=== PATIENT | male | born 1985 | race Caucasian/White ===

== ENCOUNTER 2019-08-02 06:06 | Emergency (ER) | payer OTHER ==
--- NOTE | 2019-08-02 06:32 | EDM.PDOC ---
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 instructor states they were all doing PT sit-ups and rolling sideways then another member state pt was having seizures. pt appear to stiffen up eyes seem rolled back and arms and legs shook abit. then woke up and tried to stand him up but he was unsteady. pt denies associated CP/SOB/ANDERSON/dizziness. 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/IO - Related Data Allergies Allergy/AdvReac Type Severity Reaction Status Date / Time No Known Allergies Allergy Verified 08/02/19 06:16 Home Meds: Home Meds Diclofenac Sodium [Voltaren] 50 mg PO BID 08/02/19 [History] Past Medical History Musculoskeletal History: Reports: Gout Social & Family History - Family History Endocrine/Metabolic: Reports: Diabetes, type II - Tobacco Use Smoking Status *Q: Former Smoker Used Tobacco, but Quit: No - Caffeine Use Caffeine Use: Reports: Coffee - Recreational Drug Use Recreational Drug Use: No ED ROS GENERAL - Review of Systems Review Of Systems: Comprehensive ROS is negative, except as noted in HPI. ED EXAM, NEURO - Physical Exam Exam: See Below Exam Limited By: No Limitations General Appearance: Alert, WD/WN, Mild Distress, Other (upset) Eye Exam: Bilateral Eye: PERRL (pupils ER @ 4mm) Ears: Hearing Grossly Normal Throat/Mouth: Normal Voice, No Airway Compromise, Other (no tongue trauma) Head Exam: Atraumatic Neck: Non-Tender, Full Range of Motion Respiratory/Chest: No Respiratory Distress Cardiovascular: Regular Rate, Rhythm GI/Abdominal: Soft, Non-Tender Neurological: Alert, No Motor/Sensory Deficits, Oriented x 3, Other (upset) Psychiatric: Flat Affect Skin Exam: Warm, Dry, Normal Color Course - Vital Signs Last Recorded V/S: Last Vital Signs Temp 98.0 F 08/02/19 06:16 Pulse 85 08/02/19 06:16 Resp 18 08/02/19 06:16 BP 109/71 08/02/19 06:16 Pulse Ox 96 08/02/19 06:16 Orthostatic Blood Pressure [ 139/78 Standing] Orthostatic Blood Pressure [ 128/78 Sitting] Orthostatic Blood Pressure [ 118/74 Supine] - Orders/Labs/Meds Orders: Active Orders 24 hr Category Date Time Status EKG 12 Lead [EKG Documentation Completion] [RC] STAT Care 08/02/19 06:19 Active EKG 12 Lead [EKG Documentation Completion] [RC] STAT Care 08/02/19 07:26 Active DRUG SCREEN URINE BIORAD [URCHEM] Stat Lab 08/02/19 06:25 Ordered UA RFX FRANKIE AND CULT IF INDIC [URIN] Stat Lab 08/02/19 06:25 Ordered Labs: Laboratory Tests 08/02/19 08/02/19 08/02/19 Range/Units 06:25 06:25 06:25 WBC 4.4 L (5.0-10.0) 10^3/uL RBC 4.39 L (4.6-6.2) 10^6/uL Hgb 13.5 L (14.0-18.0) g/dL Hct 38.9 L (40.0-54.0) % MCV 88.6 (80-100) fL MCH 30.8 (27.0-34.0) pg MCHC 34.7 (33.0-35.0) g/dL Plt Count 179 (150-450) 10^3/uL Neut % (Auto) 53.0 (42.2-75.2) % Lymph % (Auto) 28.5 (20.5-50.1) % [place] % (Auto) 14.4 H (2-8) % Eos % (Auto) 3.0 (1.0-3.0) % Baso % (Auto) 1.1 H (0.0-1.0) % Sodium 138 (135-145) mmol/L Potassium 4.1 (3.6-5.0) mmol/L Chloride 103 (101-111) mmol/L Carbon Dioxide 24.0 (21.0-31.0) mmol/L Anion Gap 15.1 BUN 17 (7-18) mg/dL Creatinine 1.2 (0.6-1.3) mg/dL Est Cr Clr Drug Dosing 98.89 mL/min Estimated GFR (MDRD) > 60 BUN/Creatinine Ratio 14.16 Glucose 93 (74-105) mg/dL Calcium 9.1 (8.4-10.2) mg/dl Magnesium 2.0 (1.8-2.5) mg/dL Total Bilirubin 0.8 (0.2-1.0) mg/dL AST 98 H (10-42) IU/L ALT 202 H (10-60) IU/L Alkaline Phosphatase 52 (42-121) IU/L Troponin I < 0.02 (0.00-0.02) ng/ml Total Protein 6.9 (6.7-8.2) g/dl Albumin 4.2 (3.2-5.5) g/dl Globulin 2.7 Albumin/Globulin Ratio 1.56 TSH, Ultra Sensitive (0.45-5.33) uIu/mL Ethyl Alcohol < 5 mg/dL 08/02/19 Range/Units 06:25 WBC (5.0-10.0) 10^3/uL RBC (4.6-6.2) 10^6/uL Hgb (14.0-18.0) g/dL Hct (40.0-54.0) % MCV (80-100) fL MCH (27.0-34.0) pg MCHC (33.0-35.0) g/dL Plt Count (150-450) 10^3/uL Neut % (Auto) (42.2-75.2) % Lymph % (Auto) (20.5-50.1) % [place] % (Auto) (2-8) % Eos % (Auto) (1.0-3.0) % Baso % (Auto) (0.0-1.0) % Sodium (135-145) mmol/L Potassium (3.6-5.0) mmol/L Chloride (101-111) mmol/L Carbon Dioxide (21.0-31.0) mmol/L Anion Gap BUN (7-18) mg/dL Creatinine (0.6-1.3) mg/dL Est Cr Clr Drug Dosing mL/min Estimated GFR (MDRD) BUN/Creatinine Ratio Glucose (74-105) mg/dL Calcium (8.4-10.2) mg/dl Magnesium (1.8-2.5) mg/dL Total Bilirubin (0.2-1.0) mg/dL AST (10-42) IU/L ALT (10-60) IU/L Alkaline Phosphatase (42-121) IU/L Troponin I (0.00-0.02) ng/ml Total Protein (6.7-8.2) g/dl Albumin (3.2-5.5) g/dl Globulin Albumin/Globulin Ratio TSH, Ultra Sensitive 1.31 (0.45-5.33) uIu/mL Ethyl Alcohol mg/dL Departure - Departure Disposition: DC/Tfer to [facility] 02 Clinical Impression: Syncope, cardiogenic, Junctional cardiac arrhythmia - Discharge Information Forms: ED Department Discharge, Interfacility Transfer EMTALA Sepsis Event Note - Evaluation Sepsis Screening Result: No Definite Risk - Focused Exam Vital Signs: Vital Signs Temp Pulse Resp BP Pulse Ox 08/02/19 06:16 98.0 F 85 18 109/71 96 Date Exam was Performed: 08/02/19 Time Exam was Performed: 06:37 - My Orders Last 24 Hours: My Active Orders 08/02/19 07:26 EKG 12 Lead [EKG Documentation Completion] [RC] STAT - Assessment/Plan Last 24 Hours: My Active Orders 08/02/19 07:26 EKG 12 Lead [EKG Documentation Completion] [RC] STAT <Becca Hernadez - Last Filed: 08/02/19 08:19> ED HPI GENERAL MEDICAL PROBLEM - General Source of Information: Reports: Patient, Provider (Dr. Chavez), RN, RN Notes Reviewed - History of Present Illness INITIAL COMMENTS - FREE TEXT/NARRATIVE: I assumed care of the pt from Dr. Chavez at 0700HR shift change with pt awake, alert and symptoms free. Pt denies any past medical Hx other that gout. He reports feeling well and at his baseline good health up until the syncopal episode which occurred during physical exertion this morning during P.T. training at [facility]. 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 Pt denies any chest pain, palpitations, shortness of breath, nausea, abdominal pain, neck or jaw pain, dizziness, headache, visual changes, wt gain or loss, fevers, or any other symptoms. 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 ED EXAM, NEURO - Physical Exam Exam: See Below Exam Limited By: No Limitations General Appearance: Alert, WD/WN, No Apparent Distress Eye Exam: Bilateral Eye: EOMI, Normal Inspection, PERRL Ears: Normal External Exam, Hearing Grossly Normal Nose: Normal Inspection, Normal Mucosa, No Blood Throat/Mouth: Normal Inspection, Normal Lips, Normal Teeth, Normal Gums, Normal Oropharynx, Normal Voice, No Airway Compromise Head Exam: Atraumatic, Normocephalic Neck: Normal Inspection, Supple, Non-Tender, Full Range of Motion Respiratory/Chest: No Respiratory Distress, Lungs Clear, Normal Breath Sounds, No Accessory Muscle Use, Chest Non-Tender Cardiovascular: Normal Peripheral Pulses, Regular Rate, Rhythm, No Edema, No Gallop, No JVD, No Murmur, No Rub GI/Abdominal: Normal Bowel Sounds, Soft, Non-Tender, No Organomegaly, No Distention, No Abnormal Bruit, No Mass Neurological: Alert, Normal Mood/Affect, Normal Dorsiflexion, CN II-XII Intact, Normal Plantar Flexion, No Motor/Sensory Deficits, Oriented x 3 Back Exam: Normal Inspection Extremities: Normal Inspection, Normal Range of Motion, Non-Tender, No Pedal Edema, Normal Capillary Refill Psychiatric: Normal Affect, Normal Mood Skin Exam: Warm, Dry, Intact, Normal Color, No Rash EKG INTERPRETATION EKG Date: 08/02/19 Time: 06:11 Rhythm: Other (SR with run of Jct. rhythm) Rate (Beats/Min): 72 [place]: LAD-Left [place] Deviation P-Wave: Variable QRS: Wide ST-T: Normal QT: Normal Comparison: NA - No Prior EKG EKG Interpretation Comments: Repeat EKG @ 0750HRS: Junctional Rhythm, Rate 77, otherwise unchanged from initial EKG today. Course - Radiology Interpretation Free Text/Narrative:: [facility] [place] [facility] Final Radiology Report Call: [phone] assistance Online chat: [email or web address] Name: ABDI FERNANDEZ Age: 33Years M Date: 08/02/2019 SSN: -- : 1985 Study: CT HEAD WO Requesting Physician: BECCA HERNADEZ Images: 156 Addl Studies: Provided Clinical History: Contrast: Without Contrast Medium: Contrast Amount: Contrast Method: CONFIDENTIALITY STATEMENT This report is intended only for use by the referring physician, and only in accordance with law. If you received this in error, call [phone]. Page 1 of 1 PROCEDURE INFORMATION: Exam: CT Head Without Contrast Exam date and time: 08/02/2019 7:12 AM Age: 33 years old Clinical indication: Syncope and collapse TECHNIQUE: Imaging protocol: Computed tomography of the head without contrast. Radiation optimization: All CT scans at this facility use at least one of these dose optimization techniques: automated exposure control; mA and/or kV adjustment per patient size (includes targeted exams where dose is matched to clinical indication); or iterative reconstruction. COMPARISON: No relevant prior studies available. FINDINGS: Brain: Normal. No hemorrhage. Unremarkable white matter. No mass effect. Ventricles: Normal. No ventriculomegaly. Bones/joints: Unremarkable. No acute fracture. Sinuses: Visualized sinuses are unremarkable. No fluid levels. Mastoid air cells: Visualized mastoid air cells are well aerated. Soft tissues: Unremarkable. IMPRESSION: Normal study Thank you for allowing us to participate in the care of your patient. Dictated and Authenticated by: Rashard Burt MD 08/02/2019 7:32 AM Central Time ([place] & [place]) [facility] Final Radiology Report Call: [phone] assistance Online chat: [email or web address] Name: ABDI FERNANDEZ Age: 33Years M Date: 08/02/2019 SSN: -- : 1985 Study: XR CHEST 1 VIEW FRONTAL Requesting Physician: BECCA HERNADEZ Images: 1 Addl Studies: Provided Clinical History: Contrast: Contrast Medium: Contrast Amount: Contrast Method: CONFIDENTIALITY STATEMENT This report is intended only for use by the referring physician, and only in accordance with law. If you received this in error, call [phone]. Page 1 of 1 PROCEDURE INFORMATION: Exam: XR Chest, 1 View Exam date and time: 08/02/2019 6:59 AM Age: 33 years old Clinical indication: Other: Syncope TECHNIQUE: Imaging protocol: XR of the chest Views: 1 view. COMPARISON: No relevant prior studies available. FINDINGS: Lungs: Unremarkable. No consolidation. Pleural space: Unremarkable. No pleural effusion. No pneumothorax. Heart/Mediastinum: Unremarkable. No cardiomegaly. Bones/joints: Unremarkable. IMPRESSION: No acute findings. Thank you for allowing us to participate in the care of your patient. Dictated and Authenticated by: Rashard Burt MD 08/02/2019 7:39 AM Central Time ([place] & [place]) Departure - Departure Time of Disposition: 08:06 Condition: Undetermined - Discharge Information *PRESCRIPTION DRUG MONITORING PROGRAM REVIEWED*: Not Applicable *COPY OF PRESCRIPTION DRUG MONITORING REPORT IN PATIENT TEOFILO: Not Applicable Sepsis Event Note - Focused Exam Date Exam was Performed: 08/02/19 Time Exam was Performed: 08:05
[2019-08-02 06:50] LABS: ANION GAP 15.1; CHLORIDE,CL 103 mmol/L (101-111); SODIUM,NA 138 mmol/L (135-145)
== END 2019-08-02 08:40 ==
LOC: DL.ED 06:06
DX: R57.0 Cardiogenic shock (principal); I49.9 Cardiac arrhythmia, unspecified; M10.9 Gout, unspecified; Z79.899 Other long term (current) drug therapy; Z87.891 Personal history of nicotine dependence
CPT/HCPCS: 36415; 70450; 71045; 80053; 80305-QW; 81001; 83735; 84443; 84484; 85025; 93005; 93010; 99284; 99285-25; G0480